=== PATIENT | male | born 1960 | race Caucasian/White ===

== ENCOUNTER 2020-11-25 05:57 | Day surgery (SDC) | payer BC ==
[2020-11-25] MEDS ORDERED: Lactated Ringers 1,000 ML IV SCH (06:30)
[2020-11-25] MEDS ORDERED: DIPRIVAN 200 MG/20 ML IV ONE (07:25)
[2020-11-25 08:23] VITALS: O2SAT 98
[2020-11-25 08:26] VITALS: BP 119/82; PULSE 52
--- NOTE | 2020-11-25 13:30 | OP ---
SURGERY DATE/TIME: 11/25/2020 0728 PREOPERATIVE DIAGNOSIS: Screening exam. POSTOPERATIVE DIAGNOSIS: Mild sigmoid diverticulosis otherwise normal colon. PROCEDURE: Colonoscopy. SURGEON: Dr. Amezquita. ANESTHESIA: MAC. Medications given by anesthesia department. HISTORY: The patient is a 60 year-old white male patient who presenting now for his first screening colonoscopy. He was appraised of the risks of the procedure including the risk of perforation, phlebitis, untoward reaction to medication, bleeding and missed lesions. The patient verbalized his understanding and desired to have the procedure performed. DESCRIPTION OF PROCEDURE: The patient was given the medications by the anesthesia department. He had continuous pulse oximetry, ECG monitoring, intermittent blood pressure monitoring and tidal CO2 monitoring during the examination. He was placed in the left lateral decubitus position. A digital rectal examination was performed and revealed normal anal sphincter tone, no masses and normal prostate. The flexible Olympus pediatric colonoscope was used to intubate the rectum. A view of the colon was developed sequentially to the cecum including retroflex view in the rectum, no mucosal lesions were encountered other than mild sigmoid diverticulosis. The scope was removed from the patient who tolerated the procedure well and was sent back to OP recovery in good condition. The prep was noted to be good.
== END 2020-11-25 08:35 | disposition home or self-care (01) ==
LOC: SDC 05:57
PROVIDERS: ATTEND Family Medicine
DX: Z12.11 Encounter for screening for malignant neoplasm of colon (principal); K57.30 Diverticulosis of large intestine without perforation or abscess without bleeding
CPT/HCPCS: J2704